=== PATIENT | male | born 1935 | race Caucasian/White ===

== ENCOUNTER 2018-06-14 17:09 | Emergency (ER) | payer MEDICARE, OTHER ==
[~2018-06-14] VITALS: Ht 188 cm; Wt 92.1 kg
[2018-06-14 17:13] VITALS: BP 169/82
== END 2018-06-14 19:02 | disposition home or self-care (01) ==
LOC: ED 18:45
DX: S22.41XA Multiple fractures of ribs, right side, initial encounter for closed fracture (principal); I10 Essential (primary) hypertension; E78.00 Pure hypercholesterolemia, unspecified; Z87.891 Personal history of nicotine dependence; W01.0XXA Fall on same level from slipping, tripping and stumbling without subsequent striking against object, initial encounter; Y93.01 Activity, walking, marching and hiking; Y99.8 Other external cause status; Y92.009 Unspecified place in unspecified non-institutional (private) residence as the place of occurrence of the external cause
CPT/HCPCS: 93005; 99284

== ENCOUNTER 2018-11-02 09:35 | Emergency (ER) | payer MEDICARE, OTHER ==
[~2018-11-02] VITALS: Ht 188 cm; Wt 93.3 kg
[2018-11-02 09:37] VITALS: BP 147/62
[2018-11-02 10:13] LABS: BASOPHILS # (AUTO) 0.03 x10^3/uL (0-0.1); BASOPHILS % (AUTO) 0 % (0-1); EOSINOPHILS # (AUTO) 0.23 x10^3/uL (0-0.4); EOSINOPHILS % (AUTO) 3 % (1-7); LYMPHOCYTES # (AUTO) 1.09 x10^3/uL (1-3.4); LYMPHOCYTES % (AUTO) 16 % (22-44); MD NO; MEAN CORPUSCULAR HEMOGLOBIN 32.3 pg (27.5-34.5); MEAN CORPUSCULAR VOLUME 97.9 fL (81-97); MEAN PLATELET VOLUME 8.7 fL (7.4-10.4); MONOCYTES # (AUTO) 0.35 x10^3/uL (0.2-0.8); MONOCYTES % (AUTO) 5 % (2-9); NEUTROPHILS # (AUTO) 5.31 x10^3/uL (1.8-6.8); NEUTROPHILS % (AUTO) 76 % (42-75); PLATELET COUNT 182 x10^3/uL (130-400); RED BLOOD COUNT 4.25 x10^6/uL (4.38-5.82); RED CELL DISTRIBUTION WIDTH 13.3 % (9.4-14.8)
[2018-11-02 10:25] LABS: ALBUMIN 3.4 g/dL (3.4-5.0); ANION GAP 8 mmol/L (5-15); CALCIUM 8.5 mg/dL (8.5-10.1); CHLORIDE 110 mmol/L (98-107); CREATININE 1.03 mg/dL (0.7-1.3)
[2018-11-02] MEDS ORDERED: APIXABAN 5 MG TABLET ONE (10:53)
[2018-11-02] MEDS ORDERED: APIXABAN 5 MG TABLET PO ONE (11:00)
== END 2018-11-02 11:07 | disposition home or self-care (01) ==
LOC: ED 10:19
DX: I82.431 Acute embolism and thrombosis of right popliteal vein (principal); E78.00 Pure hypercholesterolemia, unspecified; I10 Essential (primary) hypertension; Z87.891 Personal history of nicotine dependence
CPT/HCPCS: 36415; 80048; 82040; 83880; 85025; 99284

== ENCOUNTER 2019-06-05 06:42 | Emergency (ER) | payer MEDICARE ==
[~2019-06-05] VITALS: Ht 188 cm; Wt 92.0 kg
[2019-06-05 07:52] VITALS: BP 146/69
== END 2019-06-05 08:16 | disposition home or self-care (01) ==
LOC: ED 08:10
DX: L03.115 Cellulitis of right lower limb (principal); E78.00 Pure hypercholesterolemia, unspecified; I10 Essential (primary) hypertension; Z86.718 Personal history of other venous thrombosis and embolism; Z87.891 Personal history of nicotine dependence
CPT/HCPCS: 36415; 80048; 82040; 85025; 99283

== ENCOUNTER 2020-02-03 14:21 | Outpatient (CLI) | payer MEDICARE ==
[~2020-02-03 14:21] MED LIST: DOXYCYCLINE; ELOQUIS PO
== END 2020-02-03 23:59 | disposition home or self-care (01) ==
LOC: RAD 14:21
PROVIDERS: ATTEND Family Medicine
DX: I82.431 Acute embolism and thrombosis of right popliteal vein (principal); I82.441 Acute embolism and thrombosis of right tibial vein

== ENCOUNTER → 2020-02-24 | Outpatient (CLI) | payer MEDICARE | END | disposition home or self-care (01) | LOC: RAD 12:11 | PROVIDERS: ATTEND Family Medicine | DX: I80.201 Phlebitis and thrombophlebitis of unspecified deep vessels of right lower extremity (principal); R60.0 Localized edema ==

== ENCOUNTER 2020-12-09 09:22 | Emergency (ER) | payer MEDICARE ==
[~2020-12-09] VITALS: Ht 188 cm; Wt 91.8 kg
--- NOTE | 2020-12-09 09:36 | NUR ---
First contact with pt. 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 Pt states that on while he was taking a walk he had a sharp pain in his L calf. Pt reports he has been on Cipro x3 weeks after prostate surg. Pt states he was concerned about potential tendon rupture on L LE. Pt reports pain is now gone but he notes swelling in bilat feet and knees. Pt ambulatory with steady gait, CMS intact in bilat LEs. Pt placed in gown, positioned for comfort in bed.
--- NOTE | 2020-12-09 09:53 | NUR ---
Dr. Downing at bedside to evaluate pt.
[2020-12-09] MEDS ORDERED: TRAN1TBM PO (09:55)
[2020-12-09] MEDS ORDERED: ATOR40TA78 PO (09:55)
[2020-12-09] MEDS ORDERED: HYDR25TA6 PO (09:55)
[2020-12-09] MEDS ORDERED: APIX5TAB PO (09:55)
--- NOTE | 2020-12-09 10:11 | NUR ---
US tech at bedside to perform ordered studies.
[2020-12-09 10:31] LABS: BASOPHILS % (AUTO) 2 % (0-1); EOSINOPHILS % (AUTO) 4 % (1-7); LYMPHOCYTES % (AUTO) 17 % (22-44); MEAN CORPUSCULAR HEMOGLOBIN 33.2 pg (27.5-34.5); MEAN CORPUSCULAR HGB CONC 33.6 g/dL (33.2-36.2); MEAN PLATELET VOLUME 8.9 fL (7.4-10.4); MONOCYTES % (AUTO) 9 % (2-9); NEUTROPHILS % (AUTO) 68 % (42-75); PLATELET COUNT 188 x10^3/uL (130-400); RED BLOOD COUNT 3.96 x10^6/uL (4.38-5.82); RED CELL DISTRIBUTION WIDTH 13.2 % (9.4-14.8)
[2020-12-09 10:35] LABS: MD NO
[2020-12-09 10:36] LABS: ALBUMIN 3.2 g/dL (3.4-5.0); ANION GAP 7 mmol/L (5-15); CALCIUM 8.3 mg/dL (8.5-10.1); CHLORIDE 115 mmol/L (98-107); CREATININE 1.14 mg/dL (0.7-1.3)
--- NOTE | 2020-12-09 10:49 | NUR ---
Dr. Downing at bedside to discuss POC with pt.
[2020-12-09 10:55] VITALS: BP 138/78
== END 2020-12-09 11:12 | disposition home or self-care (01) ==
LOC: ED 11:05
DX: I82.531 Chronic embolism and thrombosis of right popliteal vein (principal); M25.572 Pain in left ankle and joints of left foot; M25.571 Pain in right ankle and joints of right foot; M79.89 Other specified soft tissue disorders; I10 Essential (primary) hypertension; E78.5 Hyperlipidemia, unspecified; Z85.46 Personal history of malignant neoplasm of prostate; Z87.891 Personal history of nicotine dependence
CPT/HCPCS: 36415; 80048; 82040; 85025; 93970; 99284

== ENCOUNTER 2021-02-17 07:20 | Emergency (ER) | payer MEDICARE ==
[~2021-02-17] VITALS: Ht 188 cm; Wt 88.7 kg
[~2021-02-17 07:20] MED LIST changes: +APIX5TAB PO; +ATOR40TA78 PO; +HYDR25TA6 PO; +TRAN1TBM PO
[2021-02-17 07:33] VITALS: BP 160/61
== END 2021-02-17 08:35 | disposition home or self-care (01) ==
LOC: ED 08:31
DX: S80.11XA Contusion of right lower leg, initial encounter (principal); L03.115 Cellulitis of right lower limb; I10 Essential (primary) hypertension; E78.00 Pure hypercholesterolemia, unspecified; Z86.718 Personal history of other venous thrombosis and embolism; X58.XXXA Exposure to other specified factors, initial encounter; Y93.89 Activity, other specified; Y92.89 Other specified places as the place of occurrence of the external cause; Y99.8 Other external cause status
CPT/HCPCS: 99283